=== PATIENT | male | born 1965 | race Caucasian/White ===

== ENCOUNTER 2016-09-08 19:15 | Emergency (ER) | payer BC ==
--- NOTE | ~2016-09-08 | MR18 ---
[facility] A Service of [facility] RADIOLOGY TEXT RESULTS PATIENT: SHEKHAR FRORESTER LOCATION: [facility] : 63 UNIT #: [id number] AGE: [address]: Thee Badillo MD SEX: M ORDER DR: [id number] [facility] [address] [place], [place] [address] [id number] E MR#: [id number] Acc #: [id number] NAME: SHEKHAR FORRESTER : 1965 SEX: M STUDY DATE/TIME: 09/08/2016 19:49 UNIT: [facility] ROOM: STUDY DESCRIPTION: MR Brain Wo Contrast Attending Physician: Thee Badillo M.D. Ordering Physician: Thee Badillo M.D. Primary Care Physician: Solomon Leger M.D. MRI CENTER REPORT This report is preliminary unless electronic signature is present. EXAM MRI of the brain without contrast dated 09/08/[address] head without contrast dated 09/08/2016. HISTORY Right facial numbness, bilateral hand numbness since 0930 hours today. FINDINGS Multisequence, multiplanar imaging of the brain was obtained without contrast as per the protocol. No acute stroke, space occupying intracranial mass, mass effect, midline shift or hydrocephalus. Punctate, tiny, few hyperintense T2 signal lesions are noted in the white matter. Vascular flow voids of the major cerebral arteries and dural venous sinuses are not obstructed in these thicker slices. S-shaped nasal septal deviation is seen. Mild paranasal sinus mucosal thickening is noted. Imaged orbits with the ocular structures and mastoids do not demonstrate any significant abnormality. Thick slices through the sella with the pituitary gland, pineal region and upper cervical spine are grossly unremarkable. IMPRESSION 1. No acute stroke or other acute abnormality. 2. Punctate, tiny, 1 mm few hyperintense T2 signal white matter lesions are noted, nonspecific and of uncertain clinical significance. Minimal chronic microvascular ischemic change cannot be excluded based on age and statistics. [facility] A Service of [facility] RADIOLOGY TEXT RESULTS PATIENT: SHEKHAR FORRESTER LOCATION: [facility] : 63 UNIT #: [id number] AGE: [address]: Thee Badillo MD SEX: M ORDER DR: Dictated by... Anatoly Perez M.D. THIS IS AN ELECTRONICALLY VERIFIED REPORT Anatoly Perez M.D. at 09/10/2016 1:44 PM CPR/farzad TD: 09/09/2016 14:09 JOB #: [id number] MRI CENTER REPORT Page 1 of 1 COPY
--- NOTE | ~2016-09-08 | CT71 ---
[facility] A Service of [facility] RADIOLOGY TEXT RESULTS PATIENT: SHEKHAR FORRESTER LOCATION: [facility] : 63 UNIT #: [id number] AGE: [address]: Thee Badillo MD SEX: M ORDER DR: [id number] [facility] [address] [place], [place] [address] [id number] E MR#: [id number] Acc #: [id number] NAME: SHEKHAR FORRESTER : 1965 SEX: M STUDY DATE/TIME: 09/08/2016 18:39 UNIT: [facility] ROOM: STUDY DESCRIPTION: CT Head Wo Contrast Attending Physician: Thee Badillo M.D. Ordering Physician: Thee Badillo M.D. Primary Care Physician: Solomon Leger M.D. MEDICAL IMAGING REPORT This report is preliminary unless electronic signature is present EXAM CT head without contrast, 09/08/16 COMPARISON STUDIES None. HISTORY Facial numbness in the right side with bilateral hand numbness since 09:[address] of the head was obtained without contrast in the axial plane as per the protocol. TECHNIQUE Axial noncontrast images were obtained from the skull base to the vertex. This CT exam was performed with one or more of the following radiation dose reduction techniques: automatic exposure control, adjustment of mA and/or kV according to patient size, and iterative reconstruction. FINDINGS Ventricular size and configuration are normal. There is no evidence of acute infarct or hemorrhage. There are no extraaxial fluid collections. No mass lesion or mass effect is seen. There are no skull fractures. Evidence of sinonasal surgery is seen. IMPRESSION 1. No demonstrable acute intracranial abnormality is seen. 2. MRI is more sensitive and specific in the evaluation of early acute stroke. 3. Evidence of sinonasal surgery. [facility] A Service [facility] RADIOLOGY TEXT RESULTS PATIENT: SHEKHAR FORRESTER LOCATION: [facility] : 63 UNIT #: [id number] AGE: [address]: Thee Badillo MD SEX: M ORDER DR: Dictated by... Anatoly Perez M.D. THIS IS AN ELECTRONICALLY VERIFIED REPORT Anatoly Perez M.D. at 09/10/2016 1:42 PM CPR/ea TD: 09/09/2016 12:32 JOB #: [id number] MEDICAL IMAGING REPORT Page 1 of 1 COPY
--- NOTE | ~2016-09-08 | CR72 ---
[facility] A Service of [facility] RADIOLOGY TEXT RESULTS PATIENT: SHEKHAR FORRESTER LOCATION: [facility] : 63 UNIT #: [id number] AGE: [address]: Thee Badillo MD SEX: M ORDER DR: [id number] [facility] [address] [place], [place] [address] [id number] E MR#: [id number] Acc #: [id number] NAME: SHEKHAR FORRESTER : 1965 SEX: M STUDY DATE/TIME: 09/08/2016 18:52 UNIT: [facility] ROOM: STUDY DESCRIPTION: CR Chest Single View Portable Attending Physician: Thee Badillo M.D. Ordering Physician: Thee Badillo M.D. Primary Care Physician: Solomon Leger M.D. MEDICAL IMAGING REPORT This report is preliminary unless electronic signature is present EXAM Single view of the chest dated 09/08/2016 at 1852 hours COMPARISON None HISTORY Headache, right facial numbness and bilateral hand numbness since 10:00 a.m. today. Possible Duong palsy. History of hypertension, smoker. FINDINGS Single view of the chest was obtained. A single AP portable view of the chest shows both lungs to be clear. The heart is normal in size. The mediastinal contour is normal. No significant bone abnormalities are seen. IMPRESSION Normal portable chest. Dictated by... Anatoly Perez M.D. THIS IS AN ELECTRONICALLY VERIFIED REPORT Anatoly Perez M.D. at 09/10/2016 1:42 PM CPR/to TD: 09/09/2016 13:41 JOB #: [id number] MEDICAL IMAGING REPORT Page 1 of 1 COPY
--- NOTE | ~2016-09-08 | EKG ---
PATIENT: SHEKHAR FORRESTER UNIT #: [id number] Ventricular Rate: 110 BPM Atrial Rate: 110 BPM P-R Interval: 124 ms QRS Duration: 86 ms Q-T Interval: 320 ms QTC Calculation(Bezet): 433 ms P [place]: 61 degrees Calculated R [place]: 47 degrees Calculated T [place]: 28 degrees Diagnosis Line: Sinus tachycardia Diagnosis Line: Otherwise normal ECG Diagnosis Line: No previous ECGs available Diagnosis Line: Confirmed by ARIN CHRISTENSEN MD ([id number]) on 09/09/2016 Diagnosis Line: 7:21:43 AM INTERPRETING MD: AMPARO TORRES
[2016-09-08 18:31] LABS: POC - CKMB 1.7 ng/mL (0.0-7.9); POC - TROPONIN <0.05 ng/mL (<=0.05)
[2016-09-08 18:31] LABS: BASOPHIL# 0.1 X10e3 (0-0.3); BASOPHIL% 0.6 % (0-2.5); DIFF IND NO; EOSINOPHIL# 0.1 X10e3 (0-0.7); EOSINOPHIL% 0.8 % (0.0-7.0); HEMATOCRIT 46.4 % (38.0-50.0); HEMOGLOBIN 15.8 gm/dL (13.0-16.0); LYMPHOCYTE# 3.3 X10e3 (1.0-3.5); LYMPHOCYTE% 36.3 % (17.0-45.0); MEAN CELL VOLUME 94.2 FL (83-96); MEAN CORPUSCULAR HEMOGLOBIN 32.1 PG (28-34); MEAN CORPUSCULAR HGB CONC 34.1 g/dL (30-36); MEAN PLATELET VOLUME 8.1 FL (6.5-11.5); MONOCYTE# 0.8 X10e3 (0-1.0); MONOCYTE% 8.5 % (3.0-12.0); NEUTROPHIL# 4.8 X10e3 (1.5-7.1); NEUTROPHIL% 53.8 % (40-75); PLATELET COUNT 243 X10e3 (140-420); RED BLOOD COUNT 4.93 X10e (3.90-5.60); RED CELL DISTRIBUTION WIDTH 13.4 % (11.0-15.5)
[2016-09-08 18:46] LABS: INR 1.1; PARTIAL THROMBOPLASTIN TIME 25.9 SECONDS (23.5-31.3); PROTHROMBIN TIME (PATIENT) 11.7 SECONDS (9.6-11.5)
[2016-09-08 18:55] LABS: ALKALINE PHOSPHATASE 57 U/L (32-92); ALT (SGPT) 260 U/L (10-40); AST (SGOT) 112 U/L (10-42); BILIRUBIN, DIRECT 0.1 mg/dL (0.0-0.2); BILIRUBIN,INDIRECT 0.4 mg/dL (0.0-0.9); BILIRUBIN,TOTAL 0.5 mg/dL (0.2-2.0); BLOOD UREA NITROGEN 15 mg/dL (9-23); BUN/CREATININE RATIO 13.63; CALCIUM SERUM 9.6 mg/dL (8.4-10.2); CARBON DIOXIDE 26 mmol/L (22-31); CHLORIDE 109 mmol/L (100-111); CREATININE SERUM 1.1 mg/dL (0.6-1.4); GLOM FILT RATE Estimated 76.8 mL/min (>60); GLUCOSE FASTING 152 mg/dL (70-110); PROTEIN TOTAL SERUM 7.8 g/dL (6.0-8.3); SODIUM 143 mmol/L (135-145)
[2016-09-08 18:56] LABS: ALCOHOL BLOOD <5 mg/dL (0)
[2016-09-08 18:57] LABS: URINE SOURCE CLEAN CATCH
[2016-09-08 19:03] LABS: URINE APPEARANCE CLEAR; URINE BLOOD NEG (NEG); URINE COLOR DK YELLOW; URINE GLUCOSE NEG (NEG); URINE KETONE TRACE (NEG); URINE LEUKOCYTE ESTERASE NEG (NEG); URINE NITRATE NEG (NEG); URINE PROTEIN 1+ (NEG); URINE SPECIFIC GRAVITY 1.035 (1.003-1.035)
[2016-09-08 19:08] LABS: U HYALINE CASTS AUWI 0-2 /[LPF]; URBCS1 AUWI 0-2 /[HPF] (0-2); URINE BACTERIA AUWI NEG (NEGATIVE); URINE SQUAMOUS EPITHELIAL CELL NONE SEEN /[HPF]; UWBCS1 AUWI 0-2 (0-5)
[2016-09-08 19:13] LABS: AMPHETAMINE POS (NEG); BARBITURATES NEG (NEG); BENZODIAZEPINES NEG (NEG); COCAINE NEG (NEG); CULTURE INDICATED? NO; MARIJUANA POS (NEG); OPIATES NEG (NEG); TRICYCLIC ANTIDEPRESSANTS NEG (NEG); U METHADONE NEG (NEG); URINE BILIRUBIN NEG (NEG)
[2016-09-08 21:45] LABS: POC - CKMB <1.0 ng/mL (0.0-7.9); POC - TROPONIN <0.05 ng/mL (<=0.05)
== END 2016-09-08 21:56 | disposition home or self-care (01) ==
LOC: CED 19:15
PROVIDERS: Emergency Medicine
DX: G51.0 Bell's palsy (principal); Z91.14 Patient's other noncompliance with medication regimen; F15.90 Other stimulant use, unspecified, uncomplicated; F17.200 Nicotine dependence, unspecified, uncomplicated; I10 Essential (primary) hypertension
CPT/HCPCS: 36415; 70450; 70551; 71010; 80048; 80076; 80307; 81003; 82553; 82947; 84484; 85025; 85610; 85730; 93005; 96365; 99284; G0480; J3411; J3475

== ENCOUNTER 2016-11-29 20:08 | Emergency (ER) | payer OTHER, BC ==
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
== END 2016-11-29 22:40 | disposition home or self-care (01) ==
LOC: CFTX 20:08 → CED 20:08 → CFTX 22:05
DX: S16.1XXA Strain of muscle, fascia and tendon at neck level, initial encounter (principal); S39.012A Strain of muscle, fascia and tendon of lower back, initial encounter; I10 Essential (primary) hypertension; F17.210 Nicotine dependence, cigarettes, uncomplicated; G51.0 Bell's palsy; V49.40XA Driver injured in collision with unspecified motor vehicles in traffic accident, initial encounter; Y92.410 Unspecified street and highway as the place of occurrence of the external cause
CPT/HCPCS: 70450; 72040; 72100; 72170; 99284

== ENCOUNTER 2016-12-25 13:36 | Emergency (ER) | payer OTHER, BC ==
[~2016-12-25] VITALS: Ht 172.7 cm; Wt 90.7 kg
--- NOTE | ~2016-12-25 | US140 ---
[facility] A Service of [facility] & [facility] RADIOLOGY TEXT RESULTS PATIENT: SHEKHAR FORRESTER LOCATION: [facility] : 63 UNIT #: [id number] AGE: [address]: Arianne Sharma MD SEX: M ORDER DR: [id number] [facility] [address] [place], [place] [address] [id number] E MR#: [id number] Acc #: [id number] NAME: SHEKHAR FORRESTER : 1965 SEX: M STUDY DATE/TIME: 12/25/2016 17:02 UNIT: [facility] ROOM: STUDY DESCRIPTION: US UE Veins Unilat or Ltd Stdy Attending Physician: Arianne Sharma M.D. Ordering Physician: Arianne Sharma M.D. Primary Care Physician: Primary Care Physician No MEDICAL IMAGING REPORT This report is preliminary unless electronic signature is present EXAM Ultrasound upper extremity veins unilateral or LTD study 12/25/2016. HISTORY Right upper extremity numbness for 2 days, with pain since this morning. TECHNIQUE Real-time ultrasonography right upper extremity venous structure was performed. Dailey-scale, color Doppler, Doppler pulse-wave interrogation utilized. The right internal jugular, subclavian, axillary and brachial veins are patent with normal compressibility. Normal color Doppler interrogation. Vohr-xg-cxur flow seen on color Doppler interrogation. Right basilic and cephalic veins are patent. IMPRESSION No evidence of right upper extremity deep or superficial venous thrombosis at time of this examination. Dictated by... Juan A Diamond M.D. THIS IS AN ELECTRONICALLY VERIFIED REPORT Juan A Diamond M.D. at 12/25/2016 11:32 PM CRISTY/miguel TD: 12/25/2016 19:23 JOB #: [id number] MEDICAL IMAGING REPORT Page 1 of 1 COPY
== END 2016-12-25 19:01 | disposition home or self-care (01) ==
LOC: CED 13:36
DX: R20.2 Paresthesia of skin (principal); I10 Essential (primary) hypertension; Z98.890 Other specified postprocedural states; F17.210 Nicotine dependence, cigarettes, uncomplicated
CPT/HCPCS: 93971; 99284